=== PATIENT | male | born 1965 | race Caucasian/White ===

== ENCOUNTER → 2016-10-14 | Day surgery (SDC) | payer OTHER ==
[~2016-10-14] MED LIST: LIDOCAINE 1% INJ-PF (10 MG/ML) 30 ML SDV ONE
== END ==
LOC: RAD 13:09
PROVIDERS: ATTEND Orthopaedic Surgery
PROC: BP08ZZZ Plain Radiography of Right Shoulder (ICD-10-PCS; principal; 2016-10-14)
DX: M75.51 Bursitis of right shoulder (principal); M24.011 Loose body in right shoulder; D16.01 Benign neoplasm of scapula and long bones of right upper limb; M19.011 Primary osteoarthritis, right shoulder; S43.491A Other sprain of right shoulder joint, initial encounter; X58.XXXA Exposure to other specified factors, initial encounter
CPT/HCPCS: 73222; 73040; 77002; A9576; J3490